=== PATIENT | female | born 1980 | race Caucasian/White ===

== ENCOUNTER → 2017-05-20 | Outpatient (CLI) | payer OTHER ==
[~2017-05-20] MED LIST: CETI10TA84 PO; MTR600X PO; OXYC-57 PO; PRENTAB26 PO; RANI75TA7 PO
== END | disposition home or self-care (01) ==
LOC: C.PAPS 16:36
PROVIDERS: ATTEND Obstetrics & Gynecology
DX: Z34.01 Encounter for supervision of normal first pregnancy, first trimester (principal)

== ENCOUNTER → 2017-05-20 | Outpatient (CLI) | payer OTHER ==
[2017-05-24 02:01] LABS: CHLAMYDIA TRACH RNA*** NOT DETECTED (NOT DETECTED); GC (NEIS GONORRHOEAE)RNA** NOT DETECTED (NOT DETECTED)
== END | disposition home or self-care (01) ==
LOC: C.LABSPEC 14:46
PROVIDERS: ATTEND Obstetrics & Gynecology
DX: Z34.01 Encounter for supervision of normal first pregnancy, first trimester (principal)

== ENCOUNTER → 2017-09-22 | Outpatient (CLI) | payer OTHER | END | disposition home or self-care (01) | LOC: C.LAB 15:35 | PROVIDERS: ATTEND Obstetrics & Gynecology | DX: Z34.81 Encounter for supervision of other normal pregnancy, first trimester (principal) ==

== ENCOUNTER → 2017-09-24 | Outpatient (CLI) | payer OTHER | END | disposition home or self-care (01) | LOC: C.LAB 15:04 | PROVIDERS: ATTEND Obstetrics & Gynecology | DX: Z34.81 Encounter for supervision of other normal pregnancy, first trimester (principal) ==

== ENCOUNTER → 2018-02-16 | Outpatient (CLI) | payer OTHER | END | disposition home or self-care (01) | LOC: C.LAB1850 10:36 | PROVIDERS: ATTEND Specialist | DX: Z31.41 Encounter for fertility testing (principal) ==

== ENCOUNTER → 2018-02-27 | Outpatient (CLI) | payer OTHER | END | disposition home or self-care (01) | LOC: C.LAB1850 10:28 | PROVIDERS: ATTEND Specialist | DX: Z31.41 Encounter for fertility testing (principal) ==

== ENCOUNTER 2018-11-16 05:40 | Inpatient (IN) ==
--- NOTE | 2018-11-12 13:05 | PAT Medication Instructions ---
Medication Instructions Date of Service November 12, 2018 Home Medications cetirizine [Zyrtec] 10 mg PO QAM vit 42-bsyf-gdkoc-dha 1 dose PO DAILY ranitidine HCl 75 mg PO QAM DO NOT take the morning of surgery cetirizine [Zyrtec] 10 mg PO QAM vit 78-mbec-qxcox-dha 1 dose PO DAILY Take morning of surgery With a small sip of water, OTHERWISE NOTHING TO EAT OR DRINK AFTER MIDNIGHT: ranitidine HCl 75 mg PO QAM Other Notes If you have any questions please call us at [phone] or [phone] or [phone] or [phone]
--- NOTE | 2018-11-13 10:18 | Anesthesiology Consultation ---
Date of Service November 13, 2018 Assessment & Plan (1) Encounter for pre-operative examination: Chart Review Chart Review: Acceptable Risk for Surgery and Patient seen in Pre Admission Testing Consults Requested none Teaching & Discussion Pre-Anesthesia Teaching/Discussion Notes: Instructed NPO after midnight before surgery, except medications with 15 cc of water. Medication instructions provided according to the PAT guidelines. History Surgery Operation Date: 11/16/18 07:30 Proposed Procedures p Section in - Beatriz Cordova MD Height/Weight Height: 5 ft 3.5 in Weight: 64.8 kg Allergies Allergy/AdvReac Type Severity Reaction Status Date / Time No Known Allergies Allergy Verified 11/10/18 09:24 Medications Home Medications Medication Instructions Recorded Confirmed Last Taken cetirizine [Zyrtec] 10 mg PO QAM 11/10/18 11/16/18 11/15/18 0800 vit 84-irzd-smuyf-dha 1 dose PO DAILY 11/10/18 11/16/18 11/15/18 08:00 [ + DHA] ranitidine HCl 75 mg PO QAM 11/10/18 11/16/18 11/15/18 08:00 Active Medications Generic Name Dose Route Start Last Admin Trade Name Freq PRN Reason Stop Dose Admin Lactated Ringer's 1,000 mls @ 999 mls/hr 11/16/18 05:15 11/16/18 06:05 Lr IV 12/16/18 05:14 999 mls/hr .Q1H1M DESTINI Administration Past Medical History Medical History Arrhythmia H/O PVCs. None for several years. History of anesthesia reaction SEVERE ITCHING AFTER C-SECTIONS/SPINAL ANESTHESIA Hives of unknown origin TAKES RANITIDINE AND ZYRTEC DAILY FOR. HAS HAD FOR 32 YEARS. IBS (irritable bowel syndrome) Infertility IVF X2 [place] teeth removed Exercise / Class Metabolic Activity II 4-5 Yardwork/Stairs/Walk up hill (Runs daily, cycles, lifts weights, walks, etc. Able to climb FOS. Denies CP or SOB. ) Past Surgical History Surgical History History of section x2 History of dilatation and curettage 2011 History of left inguinal hernia repair History of tonsillectomy Past Anesthesia History No Hx of Anesthesia Complications and No Family Hx of Anesthesia Complications History of PONV No Hx of PONV and No Hx of Motion Sickness Social History Smoking Status: Never smoker Do You Dip or Chew Tobacco: No Hx Alcohol Use: No Hx Substance Use: No substance use type: does not use Review of Systems Patient denies chest pain, shortness of breath, dyspnea on exertion, joint pain, reflux, cough, wheezing, palpitations. Physical Exam Vital Signs Last Vital Signs Temp 36.5 C 11/16/18 05:55 Pulse 59 L 11/16/18 06:08 Resp 18 11/16/18 05:55 BP 116/75 11/16/18 06:08 BP: 108/66 P: 55 R: 16 T: 97.9 SPO2: 100% on RA ENMT Thyromental Distance: > or= 3.5 Finger Breadths (3.5) Mallampati Class: II Neck normal visual inspection and trachea midline; neck extension not limited Respiratory normal respiratory effort Auscultation: lungs clear to auscultation bilaterally Cardiovascular Rate/Rhythm: regular rate and regular rhythm Heart Sounds: no murmur Neurologic moves all extremities Psychiatric Orientation: alert and oriented x 3 Testing Laboratory Results 11/16/18 06:01 Urine Color Yellow 11/16/18 06:00 Urine Appearance Cloudy (Clear) A 11/16/18 06:00 Urine pH 5.5 (4.5-7.5) 11/16/18 06:00 Ur Specific [place] 1.010 (1.000-1.030) 11/16/18 06:00 Urine Protein Negative (Negative) 11/16/18 06:00 Urine Glucose (UA) Negative (Negative) 11/16/18 06:00 Urine Ketones Negative (Negative) 11/16/18 06:00 Urine Nitrite Negative (Negative) 11/16/18 06:00 Ur Leukocyte Esterase Negative (Negative) 11/16/18 06:00 Urine WBC (Auto) 1-5 /hpf (0-5) 11/16/18 06:00 Urine RBC (Auto) 0-4 /hpf (0-4) 11/16/18 06:00 U Epithel Cells (Auto) >30 /lpf (0-5) H 11/16/18 06:00 Urine Bacteria (Auto) Negative (Negative) 11/16/18 06:00
[~2018-11-16 05:40] MED LIST changes: -CETI10TA84 PO; +LACTATED RINGER'S 1,000 ML IV SCH; -MTR600X PO; -OXYC-57 PO; -PRENTAB26 PO; -RANI75TA7 PO
[2018-11-16] MEDS ORDERED: CEFAZOLIN 2,000 MG in SYRINGE 0 ML IV SCH (06:00)
[2018-11-16] MEDS ORDERED: CITRIC ACID/SODIUM CITRATE 15 ML UDC PO SCH (06:00)
[2018-11-16 06:11] LABS: Basophils # (auto) 0.01 K/uL (0-0.2); Basophils % (auto) 0.1 %; Eosinophils # (auto) 0.06 K/uL (0-0.5); Eosinophils % (auto) 0.7 %; Hematocrit (blood only) 33.7 % (37-47); Hemoglobin 11.4 g/dL (12.0-16.0); Immature Granulocytes # (auto) 0.07 K/uL (0.00-0.02); Immature Granulocytes % (auto) 0.8 %; Lymphocytes # (auto) 1.69 K/uL (1.2-3.4); Lymphocytes % (auto) 18.7 %; Mean Corpuscular Volume 88.2 fL (80-100); Mean Platelet Volume 9.8 fL (7.4-10.4); Monocytes # (auto) 0.65 K/uL (0.11-0.59); Monocytes % (auto) 7.2 %; Neutrophils # (auto) 6.56 K/uL (1.4-6.5); Neutrophils % (auto) 72.5 %; Platelet Count 192 K/uL (130-400); RDW Coefficient of Variation 13.2 % (11.5-14.5); RDW Standard Deviation 42.3 fL (36.4-46.3); Red Blood Count 3.82 M/uL (4.2-5.4); White Blood Count 9.04 K/uL (4.8-10.8)
[2018-11-16 06:19] LABS: Mean Corpuscular Hgb Conc 33.8 g/dL (32-36)
[2018-11-16 06:51] LABS: Appearance Urine Cloudy (Clear); Bacteria Urine Automated Negative (Negative); Bilirubin Urine Negative (Negative); Blood Urine Negative (Negative); Color Urine Yellow; Epithelial Cell Urine Auto >30 /lpf (0-5); Glucose Urine UA Negative (Negative); Ketones Urine Negative (Negative); Leukocyte Esterase Urine Negative (Negative); Nitrite Urine Negative (Negative); Protein Urine Negative (Negative); RBC Urine Automated 0-4 /hpf (0-4); Urobilinogen Urine Negative (Negative); pH Urine 5.5 (4.5-7.5)
[2018-11-16 07:13] LABS: Cast Urine Automated 0 /lpf (0-5)
[2018-11-16] MEDS ORDERED: MoRPHine SULFATE PF 1 MG/ML 10 ML AMP/VIAL ONE (07:20)
--- NOTE | 2018-11-16 07:37 | History and Physical Report ---
DATE OF ADMISSION: 11/16/2018 PREOPERATIVE DIAGNOSES: 1. Meza intrauterine at term. 2. Prior delivery. 3. Suspected large for gestational age baby. 4. Advanced maternal age greater than 40 years at delivery. 5. resulting from IVF. HISTORY OF PRESENT ILLNESS: This is a 38-year-old G6, P2-0-2-2 with meza intrauterine , presenting for planned section. She has no obstetric complaints at the time of presentation. PAST MEDICAL HISTORY: Infertility, treated with IVF, varicella in childhood, IBS. PAST SURGICAL HISTORY: D and E, wisdom teeth, tonsillectomy, prior x2, hernia repair in the left groin. FAMILY HISTORY: Noncontributory. SOCIAL HISTORY: Negative x3. Lives with spouse and 2 children, plus a stepdaughter, and no pets. OBSTETRIC HISTORY: In 2009, section for failure to progress and distress. 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 In 2013, full term, , repeat section. In 2016 and 2018, missed abortions 1 per year. Final is the current. ALLERGIES: None. MEDICATIONS: Prenatals, Zantac and Zyrtec. PHYSICAL EXAMINATION: VITAL SIGNS: On arrival, heart tones 130, moderate variability, positive accels, no decels, toco rare contractions, not appreciated by the patient. Height 5 feet 3 inches, BMI within normal range. Most recent office, blood pressure 110/72, weight 142. GENERAL: Alert, in no acute distress. HEART: Regular rate and rhythm. LUNGS: Clear to auscultation. ABDOMEN: Gravid, nontender. CERVIX: Deferred. EXTREMITIES: Within normal limits. ASSESSMENT AND PLAN: A 38-year-old G6, P2-0-2-2 at full term for planned repeat section. Consents done in the office, reconfirmed verbally this morning at the patient's bedside. Plan for section in the near future.
[2018-11-16] MEDS ORDERED: ONDANSETRON INJ 2 MG/ML 2 ML VIAL ONE (07:59)
[2018-11-16] MEDS ORDERED: ePHEDrine sulfate 50 MG/ML SYR ONE (07:59)
[2018-11-16] MEDS ORDERED: OXYTOCIN 10 UNITS/ML VIAL ONE (07:59)
[2018-11-16] MEDS ORDERED: ACETAMINOPHEN 1000 MG/100 ML IV IV ONE (08:16)
[2018-11-16] MEDS ORDERED: fentaNYL citrate 100 MCG/2 ML VIAL ONE (08:18)
--- NOTE | 2018-11-16 08:54 | Operative Report ---
Post Operative Report Pre & Post Diagnosis Operation Date: 11/16/18 07:30 Pre-Op Diagnosis: History of 2 Prior Sections- Term - Desire for Repeat Caesarean section- IVF -AMA Post-Op Diagnosis: History of 2 Prior Sections- Term - Desire for Repeat Caesarean section- IVF -AMA Same with delivery of living male child at 0802 Procedure Operation Date: 11/16/18 07:30 Repeat low transverse section Surgeon Beatriz Cordova MD Maint Mechanic Aly Estimated Blood Loss 650 Findings Consistent with Post-Op Diagnosis Normal tubes and ovaries. Lower uterine segment thin, with significant adhesion s to bladder and anterior abdominal wall. Once bladder flap created, dilated / bulging vessels were discovered to have replaced most of the lower uterine segment. Specimens Placenta, cord blood Drains Interiano Anesthesia Type Spinal Complications none Disposition Accompanied Patient To Recovery: Yes Disposition: L&D Description of Procedure The patient was brought to the operating room and placed on the table in the supine position with a leftward tilt, then prepped and draped in standard sterile fashion. A hard time out was taken prior to proceeding. A pfannensteil incision was created sharply and carried down to the fascia using bovie electrocautery. The fascia was nicked and then extended using rodriguez scissors. The edges of the fascia were grasped with Miriam clamps and elevated, then sharply and bluntly dissected off the underlying rectus. The midline of the rectus was identified and sharply with cold dissection. The peritoneum was sharply entered, and this entry was extended using pressure from the surgeon's hands as well as sharp cold dissection of significant adhesions. The bladder retractor was placed and the lower uterine segment was examined. Dilated vessels were visible in / replacing most of the lower uterine segment. A bladder flap was created and the retractor was replaced behind this flap to protect the bladder. A transverse lower uterine incision was then created, with final entry to the uterine cavity made in a blunt manner with the surgeon's finger. Anterior placenta was immediately encountered. Clear amniotic fluid was encountered. The head was elevated to the incision and delivered using mild fundal pressure. The cord was doubly clamped and cut, then the vigorous was taken to the warmer for manufacturing engineer chief care. The placenta was manually extracted, then the uterus was gently exteriorized from the maternal abdomen. Exploration with dry lap sponge showed the placenta did appear to have completely and normally detached from the anterior lower uterine segment. Contraction of the uterine muscle did result in enough thickness of the inferior myometrial edge that closure of the hysterotomy would be able to proceed in normal fashion. The cavity was cleared of clot and debris using a dry lap sponge. The angles of the incision were identified with allis clamps, and the hysterotomy was then repaired in running locked fashion using 0-vicryl suture, followed by a second imbricating layer. The tubes and ovaries were examined and found to be normal bilaterally. The posterior gutter was irrigated and cleared of clot and debris. The uterus was then gently re-internalized to the abdomen. Lateral gutters were cleared of clot and debris using a damp lap sponge, and a final exam of the hysterotomy revealed good hemostasis. 3g of Betty was applied over the bladder flap area. The rectus muscles were reapproximated with a running 0-chromic suture. The angle of the fascia was grasped with a Miriam clamp and the fascia was then repaired in running non-locked fashion with 1- vicryl suture. At the completion of repair, the fascia was examined and found to be free of any defect. The subcutaneous tissue was copiously irrigated and then reapproximated using 3-0 chromic. The skin was then closed using 4-0 monocryl in a running subcuticular fashion and a dermabond dressing was applied. The interiano was noted to be draining clear yellow urine as the patient was transferred back to her recovery room. I attest to the content of the Intraoperative Record and any orders documented therein. Any exceptions are noted below.
[2018-11-16] MEDS ORDERED: SUPERCREAM 0.870% 15 GM JAR EXT PRN (09:20)
[2018-11-16] MEDS ORDERED: DiphenhydrAMINE HCL 50 MG/ML VIAL IV PRN ×2 (09:20→09:26)
[2018-11-16] MEDS ORDERED: LACTATED RINGER'S 1,000 ML IV SCH (09:20)
[2018-11-16] MEDS ORDERED: HYDROCORTISONE ACETATE 25 MG SUPP PR PRN (09:20)
[2018-11-16] MEDS ORDERED: BENZOCAINE 20% AER SPR 82.5 GM CAN EXT PRN (09:20)
[2018-11-16] MEDS ORDERED: MEPERIDINE HCL 50 MG/ML CARP IV PRN (09:20)
[2018-11-16] MEDS ORDERED: OXYCODONE/ACETAMINOPHEN 5mg/325mg TAB PO PRN (09:20)
[2018-11-16] MEDS ORDERED: PROMETHAZINE HCL 25 MG in SODIUM CHLORIDE 0.9% 50 ML IV PRN ×2 (09:20→09:26)
[2018-11-16] MEDS ORDERED: OXYTOCIN 30 UNITS in LACTATED RINGER'S 1,000 ML IV SCH (09:20)
[2018-11-16] MEDS ORDERED: ONDANSETRON INJ 2 MG/ML 2 ML VIAL IV PRN ×2 (09:20→09:26)
[2018-11-16] MEDS ORDERED: DIPHTHERIA/TETANUS/PERTUSSIS 0.5 ML SYR/VIAL IM ONE (09:20)
[2018-11-16] MEDS ORDERED: NALBUPHINE HCL INJ 10 MG/ML AMP IV PRN (09:26)
[2018-11-16] MEDS ORDERED: NALOXONE HCL 0.4 MG/1 ML VIAL/CARP IV PRN (09:26)
[2018-11-16] MEDS ORDERED: NALOXONE HCL 1 MG in SODIUM CHLORIDE 0.9% 1000ML 1,000 ML IV PRN (09:26)
[2018-11-16] MEDS ORDERED: HYDROmorphone INJ 0.5 MG/0.5 ML SYR IV PRN (09:26)
[2018-11-16] MEDS ORDERED: KETOROLAC 30 MG/ML VIAL IV PRN (09:26)
[2018-11-16] MEDS ORDERED: LACTATED RINGER'S 500 ML IV PRN (09:26)
[2018-11-16] MEDS ORDERED: ACETAMINOPHEN 1000 MG/100 ML IV IV PRN (09:26)
[2018-11-16] MEDS ORDERED: NALOXONE HCL 0.08 MG in SYRINGE 1.8 ML IV PRN (09:26)
[2018-11-16] MEDS ORDERED: ePHEDrine sulfate 50 MG/ML AMP IV PRN (09:26)
[2018-11-16] MEDS ORDERED: MoRPHine SULFATE PF 1 MG/ML 10 ML AMP/VIAL INT SPINAL ONE (09:26)
[2018-11-16] MEDS ORDERED: SODIUM CHLORIDE 0.9% 1000ML 1,000 ML IV SCH (09:30)
[2018-11-16] MEDS ORDERED: NO NARCOTICS OR SEDATIVES SCH (09:30)
[2018-11-16] MEDS ORDERED: DC INTRASPINAL MORPHINE SCH (09:30)
--- NOTE | 2018-11-16 10:04 | Anesthesiology Progress Note ---
Date of Service November 16, 2018 Anesthesia Post Procedure Vital Signs Vital Signs: Temp Pulse Resp BP Pulse Ox 11/16/18 10:00 62 92 11/16/18 09:59 64 100 11/16/18 09:54 66 97 11/16/18 09:50 18 11/16/18 09:49 63 100 11/16/18 09:48 65 89 L 11/16/18 09:45 73 140/63 11/16/18 09:44 66 100 11/16/18 09:40 18 11/16/18 09:39 58 L 99 11/16/18 09:34 52 L 127/77 100 11/16/18 09:30 18 11/16/18 09:29 53 L 100 11/16/18 09:25 51 L 130/73 11/16/18 09:24 52 L 100 11/16/18 09:20 36.4 C L 18 11/16/18 09:19 54 L 100 11/16/18 09:14 55 L 132/61 100 11/16/18 09:09 55 L 100 11/16/18 09:04 53 L 126/63 100 11/16/18 07:16 59 L 18 127/75 11/16/18 07:02 36.7 C 18 11/16/18 06:08 59 L 116/75 11/16/18 05:55 36.5 C 59 L 18 116/75 Pain Intensity Lower Abdomen: Pain Intensity: 3 Transfer of Care Handoff Completed per policy Notes Mental Status: alert / awake / arousable and participated in evaluation Nausea / Vomiting: adequately controlled Pain: adequately controlled Airway Patency, RR, SpO2: stable & adequate BP & HR: stable & adequate Hydration State: stable & adequate Neuraxial Anesthesia: was administered and sensory block is resolving Anesthetic Complications: no major complications apparent and Pt Satisfied with anesthetic care
[2018-11-16] MEDS: PRENATAL VITAMIN 1 TAB PO SCH (12:44)
[2018-11-16] MEDS: SIMETHICONE 80 MG CHEW PO SCH ×5 (12:46→20:03)
[2018-11-16] MEDS: CETIRIZINE HCL 10 MG TABLET PO SCH (12:47)
[2018-11-16] MEDS: DOCUSATE SODIUM 100 MG CAP PO SCH ×2 (17:37→20:03)
--- NOTE | 2018-11-17 07:07 | Obstetrical Progress Note ---
Date of Service November 17, 2018 Assessment & Plan (1) S/P : 38yo with s/p repeat classical complicated by anterior placenta. -Vital signs WNL bp 124/76 T36.6, -Hemoglobin was 11.4 on admission. no si/sx of anemia. -Pt is doing clinically well -Continue to encourage ambulation as tolerated, Monitor and control pain with Motrin prn, -Continue diet as tolerated. -Continue to support and encourage breast feeding -Counseled patient on discharge instructions including Vaginal bleeding, fevers, followup, lifting restrictions, breast feeding, vitamins, and nothing in the vagina for 6 weeks. Pt was agreeable -Plan for d/c today assuming she meets post operative milestones & passes tov Supervising Physician Co-Signing Physician Notes I have reviewed the resident's note and examined the patient myself, and agree with the note above. Subjective Patient sitting upright in bed with baby in her arms in no acute distress. Patient reports feeling well and is eager to meet all of her post operative milestones. Currently she is tolerating her diet, ambulating, passing gas, for TOV, no bm. Reports moderate lochia. Denies H/A, chest pain, palpitations and uti syx. Answered all questions, no concerns at present, pain is well controlled Physical Exam Physical Exam: Constitutional: WD/WN, vitals as above no acute distress Eyes: normal visual chavira by confrontation Neck: normal visual inspection Respiratory: normal respiratory effort, lungs clear to auscultation Cardiovascular: RRR, no murmur, no edema Heart Sounds: normal S1 and normal S2 Extremities: no calf tenderness Gastrointestinal (Abdomen): deffered, see attending attestation. patient repo rts surgical site is clean, dry and intact. Results & Data Vital Signs (Past 12 Hours) Vital Signs Temp Pulse Resp BP Pulse Ox 11/17/18 03:30 36.6 C 61 18 124/76 100 11/17/18 02:00 18 100 11/17/18 01:00 18 100 11/17/18 00:15 18 98 11/16/18 23:30 36.6 C 59 L 18 120/69 100 11/16/18 22:18 18 97 11/16/18 21:18 18 95 11/16/18 20:05 37.0 C 64 18 114/63 97 05/13/19 19:18 18 97 Resident Activity Tracking Resident Involvement: Resident Care Provided Care Provided: Adult Hospital Medicine
--- NOTE | 2018-11-17 07:07 | Anesthesiology Progress Note ---
Date of Service November 17, 2018 Anesthesia Post Procedure Vital Signs Vital Signs: Temp Pulse Pulse Resp BP BP Pulse Ox 11/17/18 03:30 36.6 C 61 18 124/76 100 11/17/18 02:00 18 100 11/17/18 01:00 18 100 11/17/18 00:15 18 98 11/16/18 23:30 36.6 C 59 L 18 120/69 100 11/16/18 22:18 18 97 11/16/18 21:18 18 95 11/16/18 20:05 37.0 C 64 18 114/63 97 11/16/18 19:18 18 97 11/16/18 18:06 20 99 11/16/18 18:00 20 98 11/16/18 17:39 16 98 11/16/18 16:11 20 100 11/16/18 15:45 36.7 C 58 L 18 114/70 100 11/16/18 15:00 20 100 11/16/18 14:00 18 100 11/16/18 13:00 16 100 11/16/18 12:30 36.5 C 59 L 20 126/75 100 11/16/18 11:45 20 100 11/16/18 11:35 36.6 C 62 18 114/53 L 100 11/16/18 11:24 36.6 C 62 18 114/53 L 100 11/16/18 11:20 18 11/16/18 11:19 56 L 100 11/16/18 11:14 60 99 11/16/18 11:09 61 100 11/16/18 11:04 60 100 11/16/18 10:59 57 L 100 11/16/18 10:55 54 L 119/72 11/16/18 10:54 60 100 11/16/18 10:50 18 11/16/18 10:49 58 L 100 11/16/18 10:44 61 98 11/16/18 10:39 62 100 11/16/18 10:34 59 L 100 11/16/18 10:29 62 100 11/16/18 10:24 66 99 11/16/18 10:21 59 L 135/60 11/16/18 10:20 18 11/16/18 10:19 57 L 100 11/16/18 10:14 58 L 100 11/16/18 10:11 66 87 L 11/16/18 10:09 65 99 11/16/18 10:04 62 96 11/16/18 10:00 62 18 92 11/16/18 09:59 64 100 11/16/18 09:54 66 97 11/16/18 09:50 18 11/16/18 09:49 63 100 11/16/18 09:48 65 89 L 11/16/18 09:45 73 140/63 11/16/18 09:44 66 100 11/16/18 09:40 18 11/16/18 09:39 58 L 99 11/16/18 09:34 52 L 127/77 100 11/16/18 09:30 18 11/16/18 09:29 53 L 100 11/16/18 09:25 51 L 130/73 11/16/18 09:24 52 L 100 11/16/18 09:20 36.4 C L 18 11/16/18 09:19 54 L 100 11/16/18 09:14 55 L 132/61 100 11/16/18 09:09 55 L 100 11/16/18 09:04 53 L 126/63 100 11/16/18 07:16 59 L 18 127/75 Pain Intensity Lower Abdomen: Pain Intensity: 2 Transfer of Care Handoff Completed per policy Notes Mental Status: alert / awake / arousable Patient Amnestic to Procedure: Yes Nausea / Vomiting: adequately controlled Pain: adequately controlled Airway Patency, RR, SpO2: stable & adequate BP & HR: stable & adequate Hydration State: stable & adequate Neuraxial Anesthesia: was administered, sensory block is resolving and sensory block resolved Anesthetic Complications: no major complications apparent
[2018-11-17 07:14] LABS: Basophils # (auto) 0.01 K/uL (0-0.2); Basophils % (auto) 0.1 %; Eosinophils # (auto) 0.03 K/uL (0-0.5); Eosinophils % (auto) 0.2 %; Hemoglobin 8.9 g/dL (12.0-16.0); Immature Granulocytes # (auto) 0.07 K/uL (0.00-0.02); Immature Granulocytes % (auto) 0.6 %; Lymphocytes # (auto) 1.32 K/uL (1.2-3.4); Lymphocytes % (auto) 10.5 %; Mean Corpuscular Hgb Conc 34.2 g/dL (32-36); Mean Corpuscular Volume 87.8 fL (80-100); Mean Platelet Volume 9.5 fL (7.4-10.4); Monocytes % (auto) 4.8 %; Neutrophils # (auto) 10.57 K/uL (1.4-6.5); Neutrophils % (auto) 83.8 %; Platelet Count 209 K/uL (130-400); RDW Coefficient of Variation 13.3 % (11.5-14.5); RDW Standard Deviation 42.7 fL (36.4-46.3); Red Blood Count 2.96 M/uL (4.2-5.4)
[2018-11-17] MEDS: SIMETHICONE 80 MG CHEW PO SCH ×3 (08:39→19:59)
[2018-11-17] MEDS: PRENATAL VITAMIN 1 TAB PO SCH (08:39)
[2018-11-17] MEDS: CETIRIZINE HCL 10 MG TABLET PO SCH (08:39)
[2018-11-17] MEDS: DOCUSATE SODIUM 100 MG CAP PO SCH ×2 (08:39→19:59)
[2018-11-17] MEDS: IBUPROFEN 600 MG TAB PO PRN ×3 (08:40→19:59)
[2018-11-18 07:25] LABS: Hematocrit (blood only) 25.9 % (37-47); Hemoglobin 8.8 g/dL (12.0-16.0)
--- NOTE | 2018-11-18 08:00 | Obstetrical Progress Note ---
Date of Service November 18, 2018 Assessment & Plan (1) delivery delivered: - patient desires d/c - instructions/Rx given - f/u for visit Physical Exam Vital Signs (Past 24 Hours) Last Vital Signs Temp 98.1 F 11/18/18 01:00 Pulse 59 L 11/18/18 01:00 Resp 18 11/18/18 01:00 BP 111/71 11/18/18 01:00 Pulse Ox 98 11/17/18 19:45 Constitutional WD/WN, vitals as above Respiratory Auscultation: lungs clear to auscultation bilaterally Cardiovascular RRR, no murmur, no edema Extremities: no calf tenderness Gastrointestinal (Abdomen) Incision intact, appropriate post-op tenderness
[2018-11-18] MEDS ORDERED: BISACODYL 10 MG SUPP PR PRN (08:45)
[2018-11-18] MEDS: CETIRIZINE HCL 10 MG TABLET PO SCH (08:47)
[2018-11-18] MEDS: PRENATAL VITAMIN 1 TAB PO SCH (08:47)
[2018-11-18] MEDS: DOCUSATE SODIUM 100 MG CAP PO SCH (08:48)
[2018-11-18] MEDS: SIMETHICONE 80 MG CHEW PO SCH (08:49)
--- NOTE | 2018-11-23 08:12 | Discharge Summary ---
Date of Service November 23, 2018 Discharge Data Consultations 11/16/18 05:41 Consult Anesthesiology Stat Procedures Performed Operation Date: 11/16/18 07:30 Actual Procedures p Section in LD(Bilateral) - Beatriz Cordova MD Hospital Course (1) delivery delivered: Patient presented for planned repeat delivery which was uncomplicated. She requested discharge on POD#1, but was requested to stay for at least 24 hours post op to allow usual postop care and monitoring. She was discharged home on POD#2 in good condition.
== END 2018-11-18 10:00 | disposition home or self-care (01) | DRG 788 ==
LOC: 4S1 05:40 → EDSTATUS 07:30 → 4S2 11:50